=== PATIENT | female | born 2000 | race Caucasian/White ===

== ENCOUNTER → 2025-02-02 | Outpatient (CLI) | payer SELFPAY, OTHER ==
--- NOTE | 2025-02-02 11:02 | MRI_ITS ---
EXAM: PELVIS W/WO CONTRAST 02/02/2025 CLINICAL HISTORY: MULLERIAN DUCT ANOMOLY, FIBROIDS ON U/S. TECHNIQUE: Procedure Code: [id number] Modality: MR Procedure: PELVIS W/WO CONTRAST Multiplanar and multisequence images were obtained intravenous gadolinium contrast. CONTRAST: Clariscan VOLUME: 10 mL COMPARISON: None. FINDINGS: A mild amount of free fluid is seen within the cul-de-sac. The uterus is mildly prominent and contains a small amount of fluid within its cavity. An exophytic oval 2.8 cm low signal abnormality extends off the anterior myometrium of the uterus, likely representing an exophytic fibroid. A round 0.8 cm focus of low signal abnormality is noted within the fundal myometrium, also likely a fibroid. A 0.6 cm nabothian cyst is seen within the cervix. The urinary bladder appears unremarkable. Multiple physiologic follicles are noted within both ovaries, the largest of which is on the right and measures 1.4 cm. The bone marrow signal is unremarkable. The periarticular musculature and subcutaneous fat appear unremarkable. MRI/Pelvis W/WO Contrast IMPRESSION: Approximately 2 uterine fibroids, as described above. Mild amount of free fluid within the cul-de-sac, likely physiologic. Multiple physiologic follicles within both ovaries. A 0.6 cm nabothian cyst within the cervix. Reading Location: [id number]
== END | disposition home or self-care (01) ==
PROVIDERS: PCP Nurse Practitioner Family; Referring Provider Nurse Practitioner Family; Visit Provider Nurse Practitioner Family
DX: Q51.0 Agenesis and aplasia of uterus (principal); D25.9 Leiomyoma of uterus, unspecified
CPT/HCPCS: 72197; A9575; A4216